=== PATIENT | female | born 1970 | race Caucasian/White ===

== ENCOUNTER 2017-03-20 08:57 | Emergency (ER) | payer OTHER ==
[2017-03-20 08:59] VITALS: BP 131/97; PULSE 114; RESP 20; TEMP 98.2; O2SAT 100
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
[2017-03-20] MEDS ORDERED: MORPHINE SULFATE 8 MG/ML INJ IV PUSH ONE (09:15)
[2017-03-20] MEDS ORDERED: SODIUM CHLOR 0.9% 1000 ML INJ 1,000 ML IV ONE (09:15)
[2017-03-20] MEDS ORDERED: ONDANSETRON HCL 4 MG/2 ML VIAL IV PUSH ONE (09:15)
[2017-03-20 09:24] LABS: AUTOMATED NEUTROPHIL # 6.7 TH/MM3 (1.8-7.7); BASOPHIL # 0.1 TH/MM3 (0-0.2); EOSINOPHIL # 0.1 TH/MM3 (0-0.4); EOSINOPHIL % 0.8 % (0.0-4.0); HEMO FLAGS DIFF FINAL; LYMPH % 17.2 % (9.0-44.0); LYMPHOCYTE # 1.5 TH/MM3 (1.0-4.8); MEAN CELL VOLUME 92.7 FL (80.0-100.0); MEAN CORPUSCULAR HEMOGLOBIN 30.9 PG (27.0-34.0); MEAN CORPUSCULAR HGB CONC 33.3 % (32.0-36.0); MONO % 7.2 % (0.0-8.0); NEUT % 73.8 % (16.0-70.0); PLATELET COUNT 278 TH/MM3 (150-450); RED BLOOD COUNT 3.88 MIL/MM3 (4.00-5.30); RED CELL DISTRIBUTION WIDTH 13.4 % (11.6-17.2)
[2017-03-20] MEDS ORDERED: MORPHINE SULFATE 4 MG/ML INJ IV PUSH ONE (09:45)
[2017-03-20 09:59] LABS: BICARBONATE 26.3 MEQ/L (21.0-32.0)
[2017-03-20 10:05] VITALS: BP 109/69; PULSE 94; RESP 20; O2SAT 100
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
[2017-03-20] MEDS ORDERED: IOHEXOL 350 MG/ML 10 ML VIAL (for RAD DIAG) IV ONE (10:59)
[2017-03-20 11:13] VITALS: BP 106/54; PULSE 64; RESP 18; O2SAT 98
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
[2017-03-20] MEDS ORDERED: HYDR-3534 PO (12:33)
== END 2017-03-20 13:01 | disposition home or self-care (01) ==
LOC: PHEFT 08:57
DX: S82.65XA Nondisplaced fracture of lateral malleolus of left fibula, initial encounter for closed fracture (principal); S20.01XA Contusion of right breast, initial encounter; M79.631 Pain in right forearm; V89.0XXA Person injured in unspecified motor-vehicle accident, nontraffic, initial encounter
CPT/HCPCS: 29515; 71010; 71260; 73090; 73610; 74177; 80048; 85025; 96361; 96374; 96375; 99285; E0113; J2270; J2405; J7030; Q9967